=== PATIENT | female | born 1965 | race Caucasian/White ===

== ENCOUNTER 2022-04-24 08:00 | Outpatient (CLI) | payer OTHER ==
--- NOTE | 2022-04-24 12:52 | XRAY Report ---
PROCEDURE: Knee 3 View RT INDICATIONS: RIGHT KNEE PAIN TECHNIQUE: 3 views of the right knee(s) were acquired. COMPARISON: None. FINDINGS: Bones: No fractures or dislocations. Moderate tricompartmental osteoarthritis is seen. No suspiciou s bony lesions. Soft tissues: Moderate to large suprapatellar joint effusion is noted. Tricompartmental chondrocalcin osis is seen. IMPRESSION: No acute right knee fracture or dislocation. Moderate to large suprapatellar joint effusi on. Moderate tricompartmental osteoarthritis and chondrocalcinosis. Reviewed by: Boby Blas MD on 04/24/2022 12:50 PM PDT Approved by: Boby Blas MD on 04/24/2022 12:50 PM PDT Station ID: [id number]
== END 2022-04-24 23:59 | disposition home or self-care (01) ==
LOC: DI.S 08:00
PROVIDERS: ATTEND Physician Assistant Medical
DX: M25.461 Effusion, right knee (principal); M17.11 Unilateral primary osteoarthritis, right knee; M11.261 Other chondrocalcinosis, right knee